=== PATIENT | male | born 1930 | race Caucasian/White ===

== ENCOUNTER 2016-12-17 14:32 | Emergency (ER) | payer OTHER ==
[~2016-12-17] VITALS: Ht 179.1 cm; Wt 69.9 kg
[~2016-12-17 14:32] MED LIST: ATIVAN1 MG PO
[2016-12-17 15:02] VITALS: BP 148/67
[2016-12-17] MEDS ORDERED: ATIVAN1 M1 PO (16:15)
--- NOTE | 2016-12-17 16:16 | ED GENERAL ADULT ---
History of Present Illness General Chief Complaint: General Adult Stated Complaint: MED REFILL Source: patient Exam Limitations: no limitations Allergies Coded Allergies: NO KNOWN ALLERGIES (02/22/15) Triage Note: TRIAGE: 86 Y/O MALE PRESENTS REQUESTING REFILL OF LORAZEPAM 1MG TABLETS. [facility]ICATION TO HIS HOME BUT THE PATIENT DOES NOT YET HAVE IT AND DOES NOT KNOW WHEN IT WILL BE DELIVERED. REPORTS COULD NOT SLEEP LAST NIGHT. PLEASANT AND COOPERATIVE. Triage Nurses Notes Reviewed? yes HPI: This patient is an 86-year-old male who presented to the emergency department today requesting a medication refill of lorazepam. The patient reported that he typically takes lorazepam, 1 mg, 2 times a day. He reported [facility] and [facility] that his prescription was already shipped to him. However, his prescription never showed up. He reported that he took his last pill today. The patient reported that he is having a lot of difficulty sleeping with his medication. (BONY CUTLER PA-C) Vital Signs & Intake/Output Vital Signs & Intake/Output Vital Signs Date Time Temp Pulse Resp B/P B/P Pulse O2 O2 Flow FiO2 Mean Ox Delivery Rate 12/17 1502 98.1 69 18 148/67 98 Room Air Room Air ED Intake and Output 12/18 0000 12/17 1200 Intake Total Output Total Balance Patient 154 lb Weight Weight Reported by Patient Measurement Method Reconcile Medications Lorazepam (Ativan) 1 MG TAB 1 TAB PO BID ANXIETY Lorazepam (Ativan) 1 MG TABLET 1 TAB PO BID PRN ANXIETY (JAGDEEP BAUTISTA MD) Past History Travel History Traveled to [place] past 21 day No Medical History Any Pertinent Medical History? see below for history Cardiovascular: hypertension Psychiatric: anxiety Surgical History Surgical History: non-contributory Psychosocial History What is your primary language Nigerian Tobacco Use: Never used ETOH Use: occasional use Illicit Drug Use: denies illicit drug use Family History Hx Contributory? No (BONY CUTLER PA-C) Review of Systems Review of Systems Constitutional: Reports: see HPI. EENTM: Reports: no symptoms. Respiratory: Reports: no symptoms. Cardiovascular: Reports: no symptoms. GI: Reports: no symptoms. Musculoskeletal: Reports: no symptoms. Skin: Reports: no symptoms. Neurological/Psychological: Reports: no symptoms. All Other Systems: Reviewed and Negative (BONY CUTLER PA-C) Physical Exam Physical Exam General Appearance: well developed/nourished, no apparent distress, alert, awake Comments: Well-developed well-nourished person in no acute distress HEENT: Head normocephalic, moist mucous membranes Neck: Supple, no lymphadenopathy Back: Normal gait Respiratory: No respiratory distress. Speaking in full sentences Extremities: No edema, full range of motion Neuro: Alert and oriented x3 Psych: Mood affect normal, normal memory normal judgment. Skin: Warm and dry, no rash on exposed skin Core Measures ACS in differential dx? No CVA/TIA Diagnosis: No Severe Sepsis Present: No Septic Shock Present: No (BONY CUTLER PA-C) Progress Differential Diagnoses I considered the following diagnoses in my evaluation of the patient: [ Medication withdrawal, medication reaction, medication seeking] Plan of Care: This patient is an 86-year-old male who presented requesting a refill of his lorazepam. The patient was [facility], but [facility] never [facility]. [facility]. Initial ED EKG: none (BONY CUTLER PA-C) Departure Departure Disposition: HOME OR SELF CARE Condition: Stable Clinical Impression Primary Impression: Medication refill Referrals: DWAIN VILLAGOMEZ MD (PCP/Family) Additional Instructions: Please take medication as directed. [facility]. Return for any worsening symptoms or concerns. Departure Forms: Customer Survey General Discharge Information Prescriptions: Current Visit Scripts Lorazepam (Ativan) 1 TAB PO BID PRN ANXIETY #5 TAB (BONY CUTLER PA-C) PA/RECEIVING CHECKER Co-Sign Statement Statement: ED Attending supervision documentation- x I saw and evaluated the patient. I have also reviewed all the pertinent lab results and diagnostic results. I agree with the findings and the plan of care as documented in the PA's/RECEIVING CHECKER's documentation. [] I have reviewed the ED Record and agree with the PA's/RECEIVING CHECKER's documentation. [] Additions or exceptions (if any) to the PAs/RECEIVING CHECKER's note and plan are summarized below: [] (MICHELE BURCH,JAGDEEP) Critical Care Note Critical Care Note Critical Care Time: non-applicable (BONY CUTLER PA-C)
== END 2016-12-17 16:22 ==
LOC: ERH 14:32
DX: Z76.0 Encounter for issue of repeat prescription (principal)
CPT/HCPCS: 99281

== ENCOUNTER 2017-02-04 18:58 | Emergency (ER) | payer OTHER ==
[~2017-02-04 18:58] MED LIST changes: +ATIVAN1 M1 PO
[2017-02-04] MEDS ORDERED: PRAVASTATIN SOD20 M2 PO (19:26)
[2017-02-04] MEDS ORDERED: LISINOPRIL10 M1 PO (19:27)
[2017-02-04 19:57] LABS: ABSOLUTE BASOPHIL COUNT 0 /CUMM (0.0-0.2); ABSOLUTE EOSINOPHIL COUNT 0.1 /CUMM (0.0-0.7); ABSOLUTE GRANULOCYTE CT 3.1 /CUMM (1.4-6.5); ABSOLUTE LYMPH COUNT 1.6 /CUMM (1.2-3.4); ABSOLUTE MONOCYTE COUNT 0.6 /CUMM (0.10-0.60); BASOPHIL % 0.2 % (0.0-2.0); EOSINOPHIL % 1.8 % (0-5); MEAN CORPUSCULAR HGB 30.6 PG (27.0-31.0); MEAN CORPUSCULAR HGB CONC 33.1 G/DL (33.0-37.0); MEAN CORPUSCULAR VOLUME 92.5 FL (80.0-94.0); MEAN PLATELET VOLUME 7.7 FL (7.4-10.4); PLATELET COUNT 156 /CUMM (130-400); RBC DISTRIBUTION WIDTH 13.6 % (11.5-14.5); RED BLOOD CELL CT 4.11 /CUMM (4.70-6.10); WHITE BLOOD CELL COUNT 5.4 /CUMM (4.8-10.8)
[2017-02-04 20:04] LABS: PT 12.1 SEC (9.4-12.5); PTT 36 SEC (25-37)
[2017-02-04] MEDS ORDERED: ASPIRIN EC81 M1 PO (20:27)
[2017-02-04] MEDS ORDERED: FISH OIL 1,0001 EAC4 PO (20:28)
[2017-02-04] MEDS ORDERED: VITAMIN C1000 M4 PO (20:28)
--- NOTE | 2017-02-04 20:28 | ED DYSPNEA/ASTHMA COMPLAINT ---
History of Present Illness General Chief Complaint: General Adult Stated Complaint: THROWING UP BLOOD Source: patient, old records Exam Limitations: no limitations Vital Signs & Intake/Output Vital Signs & Intake/Output Vital Signs Date Time Temp Pulse Resp B/P B/P Pulse O2 O2 Flow FiO2 Mean Ox Delivery Rate 02/05 2020 98 Room Air 02/04 1925 98.5 70 16 142/75 98 Room Air Allergies Coded Allergies: NO KNOWN ALLERGIES (02/04/17) Reconcile Medications Ascorbic Acid (Vitamin C) 1,000 MG TABLET 1 TAB PO DAILY SUPPLEMENT (Reported ) Aspirin (Ecotrin*) 81 MG TABLET.DR 1 TAB PO DAILY HEART/BLOOD (Reported) Lisinopril 10 MG TABLET 1 TAB PO DAILY HTN (Reported) Lorazepam (Ativan) (Unknown Strength) TABLET (Unknown Dose) PO DAILY ANXIETY (Reported) [place]-3 Fatty Acids/Fish Oil (Fish Oil 1,000 MG Softgel) (Unknown Strength) CAPSULE (Unknown Dose) PO DAILY SUPPLEMENT (Reported) Pravastatin Sodium 20 MG TABLET 1 TAB PO DAILY CHOLESTEROL (Reported) Ubidecarenone (Co Q-10) (Unknown Strength) CAPSULE (Unknown Dose) PO DAILY SUPPLEMENT (Reported) Triage Note: TRIAGE: COUGHED UP DARK RED CLOTS THIS EVENING. SPITTING UP SMALL AMOUNT OF BROWN SPUTUM, HEME POSITIVE IN TRIAGE. DENIES CHEST PAIN OR SOB. UNSURE IF HE TAKES BLOOD THINNERS. DENIES DIZZINESS. AAOX4. DENIES PAIN. DENIES PAIN WITH PALPATION OF ABDOMEN. -N/V/D, LAST BM TWO DAYS AGO AND NORMAL, DENIES BLACK TARRY STOOL. ORTHOS NEGATIVE Triage Nurses Notes Reviewed? yes HPI: Patient ate pizza for dinner and then felt like there was a lot of phlegm in his throat. Patient then began coughing to bring up the phlegm. Patient then noticed there were specks of bright red blood in the sputum that it is pending. Patient denies any chest pain or shortness of breath. Patient states that when he coughs he occasionally now brings up small blood clots however he has not noticed any more bright red blood. There is no orthopnea. There are no fever or chills. Past History Travel History Traveled to [place] past 21 day No Medical History Any Pertinent Medical History? see below for history Neurological: NONE EENT: NONE Cardiovascular: hypertension Respiratory: NONE Gastrointestinal: NONE Hepatic: NONE Renal: NONE Musculoskeletal: NONE Psychiatric: anxiety Endocrine: NONE Blood Disorders: NONE Surgical History Surgical History: non-contributory Psychosocial History What is your primary language Martiniquais Tobacco Use: Never used ETOH Use: occasional use Illicit Drug Use: denies illicit drug use Family History Hx Contributory? No Review of Systems Review of Systems Constitutional: Reports: no symptoms. EENTM: Reports: no symptoms. Respiratory: Reports: see HPI, cough, hemoptysis. Cardiovascular: Reports: no symptoms. GI: Reports: no symptoms. Genitourinary: Reports: no symptoms. Musculoskeletal: Reports: no symptoms. Skin: Reports: no symptoms. Neurological/Psychological: Reports: no symptoms. Hematologic/Endocrine: Reports: no symptoms. Immunologic/Allergic: Reports: no symptoms. All Other Systems: Reviewed and Negative Physical Exam Physical Exam General Appearance: well developed/nourished, alert, awake, anxious Head: atraumatic, normal appearance Eyes: Bilateral: PERRL, EOMI. Ears, Nose, Throat: normal pharynx, normal ENT inspection, hearing grossly normal Neck: normal inspection, supple, full range of motion Respiratory: normal breath sounds, chest non-tender, no respiratory distress, lungs clear Cardiovascular: regular rate/rhythm, normal peripheral pulses Gastrointestinal: normal bowel sounds, soft, non-tender, no organomegaly Extremities: normal inspection, normal capillary refill, normal range of motion, no edema Neurologic/Psych: no motor/sensory deficits, awake, alert, oriented x 3, normal gait, normal mood/affect Skin: intact, normal color, warm/dry Lymphatic: no anterior cervical keena Core Measures ACS in differential dx? No Severe Sepsis Present: No Septic Shock Present: No Progress Differential Diagnosis: bronchitis, pulmonary embolism, pneumonia Plan of Care: Orders Procedure Date/time Status EKG 02/05 1928 Active TROPONIN LEVEL 02/04 1909 Complete PARTIAL THROMBOPLASTIN TIME 02/04 1909 Complete PROTHROMBIN TIME 02/04 1909 Complete COMPREHENSIVE METABOLIC PANEL 02/04 1909 Complete CBC WITHOUT DIFFERENTIAL 02/04 1909 Complete Laboratory Tests 02/04/171919: Anion Gap 13, Estimated GFR > 60, BUN/Creatinine Ratio 19.1, Glucose 115 H, Calcium 9.5, Total Bilirubin 1.1, AST 22, ALT 28, Alkaline Phosphatase 43, Troponin I < 0.01, Total Protein 7.4, Albumin 4.7, Globulin 2.7, Albumin/ Globulin Ratio 1.7, PT 12.1, INR 1.15, APTT 36, CBC w Diff NO MAN DIFF REQ, RBC 4.11 L, MCV 92.5, MCH 30.6, RDW 13.6, MPV 7.7, Gran % 58.0, Lymphocytes % 28.9, Monocytes % 11.1 H, Eosinophils % 1.8, Basophils % 0.2, Absolute Granulocytes 3.1, Absolute Lymphocytes 1.6, Absolute Monocytes 0.6, Absolute Eosinophils 0.1, Absolute Basophils 0, PUBS MCHC 33.1 Diagnostic Imaging: Viewed by Me: Radiology Read. Discussed w/RAD: Radiology Read. CXR Impression: PATIENT: YOKO LAGUNA PRESENT AGE : 86 PATIENT ACCOUNT NO: [id number] : 31 LOCATION: [facility] ORDERING PHYSICIAN: KYLER ALMANZA MD SERVICE DATE: 02/04/17-2023 EXAM TYPE: RAD - XRY-CHEST XRAY, PA AND LATERAL EXAMINATION: XR CHEST CLINICAL INFORMATION: Hemoptysis. Evaluate for pneumonia/mass. COMPARISON: Multiple priors, most recent chest CT dated 08/25/2010. TECHNIQUE: PA and lateral views of the chest were obtained. FINDINGS: No focal airspace consolidation. No left-sided pleural effusion. The right costophrenic angle is not included on the AP view. No pneumothorax. No cardiomediastinal silhouette enlargement. Plaque-like calcifications are seen within the bilateral pleural, most prominent adjacent to the left hemidiaphragm. IMPRESSION: 1. No airspace consolidation. 2. Bilateral calcified pleural plaques, as seen on the prior chest CT dated 08/25/2010. 3. Incomplete evaluation of the right costophrenic angle. DICTATED BY: SHANNON MITCHELL MD DATE/TIME DICTATED:02/04/172045 PIPE FITTER SOFT COPPER:FRANSISCO DATE/TIME TRANSCRIBED:02/04/172045 CONFIDENTIAL, DO NOT COPY WITHOUT APPROPRIATE AUTHORIZATION. <Electronically signed in Other Vendor System> SIGNED BY: SHANNON MITCHELL MD 02/04/172103 Initial ED EKG: NSR, LBBB, nonspecific ST T wave chg Departure Departure Disposition: HOME OR SELF CARE Condition: Stable Clinical Impression Primary Impression: Hemoptysis Referrals: DWAIN VILLAGOMEZ MD (PCP/Family) Additional Instructions: RETURN IF SYMPTOMS WORSEN, IF YOU GET SHORT OF BREATH, DEVELOP CHEST PAIN OR FOR ANY CONCERNS Departure Forms: Customer Survey General Discharge Information Critical Care Note Critical Care Note Critical Care Time: non-applicable
[2017-02-04] MEDS ORDERED: CO Q-10100 MG PO (20:29)
[2017-02-04] MEDS ORDERED: ATIVAN1 M1 PO (20:30)
[2017-02-04 21:00] VITALS: BP 136/75
--- NOTE | 2017-02-04 21:04 | RADIOLOGY REPORT ---
EXAMINATION: XR CHEST CLINICAL INFORMATION: Hemoptysis. Evaluate for pneumonia/mass. COMPARISON: Multiple priors, most recent chest CT dated 08/25/2010. TECHNIQUE: PA and lateral views of the chest were obtained. FINDINGS: No focal airspace consolidation. No left-sided pleural effusion. The right costophrenic angle is not included on the AP view. No pneumothorax. No cardiomediastinal silhouette enlargement. Plaque-like calcifications are seen within the bilateral pleural, most prominent adjacent to the left hemidiaphragm. IMPRESSION: 1. No airspace consolidation. 2. Bilateral calcified pleural plaques, as seen on the prior chest CT dated 08/25/2010. 3. Incomplete evaluation of the right costophrenic angle.
== END 2017-02-04 21:17 ==
LOC: ERH 18:58
PROVIDERS: Emergency Medicine
DX: R04.2 Hemoptysis (principal)
CPT/HCPCS: 93005; 93010